=== PATIENT | female | born 1970 | race Caucasian/White ===

== ENCOUNTER 2021-01-22 09:12 | Outpatient (CLI) | payer OTHER ==
[~2021-01-22] VITALS: Ht 170.2 cm; Wt 95.3 kg
[2021-01-22 09:00] VITALS: BP 145/91
[2021-01-22] MEDS ORDERED: diphenhydrAMINE 50 MG/ML INJ (BENADRYL) IV PRN (09:30)
[2021-01-22] MEDS ORDERED: CASIRIVIMAB/IMDEVIMAB 1,200 MG in NS (IVPB) 250 ML IV ONE (09:30)
[2021-01-22] MEDS ORDERED: EPINEPHrine INJECTION 1 MG/ML AMP IM PRN (09:30)
[2021-01-22 10:41] VITALS: BP 130/83
== END 2021-01-22 11:40 | disposition home or self-care (01) ==
LOC: INFUSION 09:12
DX: U07.1 COVID-19 (principal)